=== PATIENT | male | born 1980 | race Caucasian/White ===

== ENCOUNTER 2018-08-20 06:22 | Emergency (ER) | payer SELFPAY ==
[2018-08-20 06:26] VITALS: BP 148/88
[2018-08-20] MEDS ORDERED: LIDOCAINE MPF 1%-EPI 1:200000 30 ML VIAL SUBQ STA (06:35)
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
[2018-08-20] MEDS ORDERED: ACETAMINOPHEN 325 MG TABLET PO STA (06:37)
[2018-08-20] MEDS ORDERED: IBUPROFEN 600 MG TABLET PO STA (06:37)
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
== END 2018-08-20 08:20 | disposition home or self-care (01) ==
LOC: EDUNIT# → ED 06:22
DX: S51.011A Laceration without foreign body of right elbow, initial encounter (principal); S46.911A Strain of unspecified muscle, fascia and tendon at shoulder and upper arm level, right arm, initial encounter; S50.01XA Contusion of right elbow, initial encounter; W22.8XXA Striking against or struck by other objects, initial encounter; W25.XXXA Contact with sharp glass, initial encounter; Y92.009 Unspecified place in unspecified non-institutional (private) residence as the place of occurrence of the external cause
CPT/HCPCS: 12001; 73030; 73070; 99283; A9270